=== PATIENT | male | born 1970 | race American Indian/Alaskan Native ===

== ENCOUNTER 2017-03-07 06:06 | Emergency (ER) | payer OTHER ==
[2017-03-07 06:56] LABS: Basophils % (Auto) 0.4 % (0.0-1.8); Eosinophils # (Auto) 0.1 K/mm3 (0.0-0.4); Eosinophils % (Auto) 1.2 % (0.0-4.3); Hematocrit 38.7 % (35.5-45.6); Hemoglobin 12.4 gm/dl (11.8-15.2); Lymphocytes # (Auto) 2.7 K/mm3 (1.2-5.4); Lymphocytes % (Auto) 24.6 % (13.4-35.0); Mean Corpuscular HGB Conc 32 % (32-34); Mean Corpuscular Volume 80 fl (84-94); Monocytes # (Auto) 0.9 K/mm3 (0.0-0.8); Monocytes % (Auto) 8.7 % (0.0-7.3); Platelet Count 286 K/mm3 (140-440); Red Blood Count 4.86 M/mm3 (3.65-5.03); Red Cell Distribution Width 17.7 % (13.2-15.2)
[2017-03-07 06:59] LABS: Mean Corpuscular Hemoglobin 26 pg (28-32)
[2017-03-07 07:02] LABS: Bilirubin,Urine NEG (Negative); Blood,Urine NEG (Negative); Color,Urine Yellow (Yellow); Mucus,Urine FEW /HPF; Nitrite,Urine NEG (Negative); RBC,Urine < 1.0 /HPF (0.0-6.0); WBC,Urine < 1.0 /HPF (0.0-6.0)
[2017-03-07 07:31] LABS: Calcium 9.5 mg/dL (8.4-10.2)
--- NOTE | 2017-03-07 08:03 | Cat Scan Report ---
FINAL REPORT EXAM: CT ABDOMEN PELVIS WO CON HISTORY: Right groin swelling and pain TECHNIQUE: Routine axial imaging was obtained of the abdomen and pelvis without oral or IV contrast. Sagittal and coronal reconstructions were reviewed. FINDINGS: The lung bases are clear. Pleural fluid is not seen. There is a small hiatal hernia. The liver, gallbladder, pancreas, spleen, and adrenal glands appear normal. The kidneys show no evidence of stones or hydronephrosis. There is a 3.8 cm cyst in the lower pole of left kidney. The bowel loops are normal in caliber and course. There is no evidence of free fluid or adenopathy. In the pelvis there is a large right inguinal hernia containing omental fat. The appendix is extending into the right inguinal hernia. There is no evidence of ischemia. The prostate gland and bladder appear normal. The skeletal structures appear well maintained. IMPRESSION: Large right inguinal hernia containing omental fat as well as the patient's appendix. No evidence of ischemia. No acute process in the upper abdomen. 3.8 cm cortical cyst left kidney. Small hiatal hernia.
--- NOTE | 2017-03-07 08:09 | Ultrasound Report ---
FINAL REPORT EXAM: US TESTICULAR DOPPLER COMP HISTORY: Right Scrotal Swelling TECHNIQUE: And Routine imaging was obtained of the scrotum including Doppler interrogation of the testicles. FINDINGS: Both testicles normal in size contour blood flow revealing speckle calcifications compatible with bilateral testicular microlithiasis. The right testicle measures 3.5 cm x 1.1 cm x 2.6 cm. The left testicle measures 3.9 cm x 1.7 cm x 2.6 cm. The epididymi are normal bilaterally. On the right side there is a small varicocele. Also on the right side there is an echogenic structure extending from the inguinal canal compatible the patient's known inguinal hernia containing omental fat. There is a small right-sided hydrocele. There is also a septated left-sided hydrocele, the latter measuring 3.1 cm x 1.5 cm x 1.6 cm. IMPRESSION: Large right inguinal hernia containing omental fat. Bilateral testicular microlithiasis. No evidence of testicular torsion, neoplasia or infection. Bilateral small hydroceles as described. Small right varicocele.
--- NOTE | 2017-03-07 10:41 | Emergency Department Report ---
ED Abdominal Pain HPI - General Chief Complaint: Urogenital-Male Stated Complaint: ABD PAIN Time Seen by Provider: 03/07/17 10:28 Source: patient Mode of arrival: Ambulatory Limitations: No Limitations - History of Present Illness Initial Comments: Patient is 46 years old obese -Iranian male with no significant past medical history he came today for evaluation of right inguinal swelling and right testicular swelling. Patient stated that this is been going on for 2 months he started doing some workout 2 days ago minimal lifting. Patient stated that he was able to reduce the swelling back but since yesterday he had trouble reducing it. Patient denied any nausea or vomiting. No fever. No urinary symptoms. While in the CT scan patient stated that he was able to reduce the swelling after he had the CT scan done. MD Complaint: abdominal pain -: Gradual Location: RLQ Quality: fullness Consistency: now resolved Associated Symptoms: denies other symptoms - Related Data Previous Rx's Medication Instructions Recorded Last Taken Type Naproxen [Naprosyn] 500 mg PO BID #14 tablet 03/07/17 Unknown Rx Allergies Allergy/AdvReac Type Severity Reaction Status Date / Time No Known Allergies Allergy Unverified 03/07/17 06:21 ED Review of Systems ROS: Stated complaint: ABD PAIN Other details as noted in HPI Comment: All other systems reviewed and negative Constitutional: denies: chills, fever Respiratory: denies: cough, shortness of breath Cardiovascular: denies: chest pain Gastrointestinal: abdominal pain. denies: nausea, vomiting, diarrhea, constipation, hematemesis, melena, hematochezia Musculoskeletal: denies: back pain Neurological: denies: headache, weakness, numbness, paresthesias ED Past Medical Hx - Past Medical History Hx Hypertension: Yes Additional medical history: Morbid Obesity - Surgical History Past Surgical History?: Yes Additional Surgical History: Right forearm hardware - Social History Smoking Status: Never Smoker Substance Use Type: None - Medications Home Medications: Home Medications Medication Instructions Recorded Confirmed Last Taken Type Naproxen [Naprosyn] 500 mg PO BID #14 tablet 03/07/17 Unknown Rx ED Physical Exam - General Limitations: No Limitations General appearance: alert, in no apparent distress - Head Head exam: Present: atraumatic, normocephalic - Eye Eye exam: Present: normal appearance, PERRL - ENT ENT exam: Present: normal exam. Absent: mucous membranes moist, TM's normal bilaterally - Neck Neck exam: Present: normal inspection. Absent: tenderness, meningismus, full ROM, lymphadenopathy - Respiratory Respiratory exam: Present: normal lung sounds bilaterally. Absent: respiratory distress, wheezes, rales, rhonchi, chest wall tenderness - Cardiovascular Cardiovascular Exam: Present: regular rate, normal rhythm, normal heart sounds - GI/Abdominal GI/Abdominal exam: Present: soft, normal bowel sounds, hernia (right inguinal hernia, completely reduced by the patient at the time of the exam.). Absent: distended, tenderness, guarding, rebound, rigid, diminished bowel sounds, organomegaly, mass, bruit, pulsatile mass - Extremities Exam Extremities exam: Present: normal inspection, full ROM, normal capillary refill. Absent: tenderness, pedal edema, joint swelling, calf tenderness - Back Exam Back exam: Present: normal inspection, full ROM. Absent: CVA tenderness (L) - Neurological Exam Neurological exam: Present: alert, normal gait. Absent: oriented X3, CN II-XII intact - Skin Skin exam: Present: warm, intact, normal color ED Course Vital Signs 03/07/17 06:13 Temperature 100.7 F H Pulse Rate 107 H Respiratory 18 Rate Blood Pressure 179/113 O2 Sat by Pulse 100 Oximetry - Reevaluation(s) Reevaluation #1: 03/07/17 10:42 Patient right inguinal hernia was completely reduced by the patient himself while he was in the CT scan. No evidence of strangulation or obstruction. Patient was given Dr. Kenyon to follow-up for possible elective surgery. ED Medical Decision Making - Lab Data Result diagrams: 03/07/17 06:40 03/07/17 06:40 - Radiology Data Radiology results: report reviewed Referring Physician: ED BASIA Patient Name: DERIK GR Date of : 1970 Sex: Male Report Date: 2017-03-07 Report Status: Finalized Findings [facility] [address] [place] [address] Cat Scan Report Signed Patient: DERIK GR MR#: [id number] : 1970 Acct:[id number] Age/Sex: 46 / M ADM Date: 03/07/17 Loc: ED Attending Dr: Ordering Physician: ED MD BASIA Date of Service: 03/07/17 Procedure(s): CT abdomen pelvis wo con Accession Number(s): [id number] cc: BUTCH FLOR MD FINAL REPORT EXAM: CT ABDOMEN PELVIS WO CON HISTORY: Right groin swelling and pain TECHNIQUE: Routine axial imaging was obtained of the abdomen and pelvis without oral or IV contrast. Sagittal and coronal reconstructions were reviewed. FINDINGS: The lung bases are clear. Pleural fluid is not seen. There is a small hiatal hernia. The liver, gallbladder, pancreas, spleen, and adrenal glands appear normal. The kidneys show no evidence of stones or hydronephrosis. There is a 3.8 cm cyst in the lower pole of left kidney. The bowel loops are normal in caliber and course. There is no evidence of free fluid or adenopathy. In the pelvis there is a large right inguinal hernia containing omental fat. The appendix is extending into the right inguinal hernia. There is no evidence of ischemia. The prostate gland and bladder appear normal. The skeletal structures appear well maintained. IMPRESSION: Large right inguinal hernia containing omental fat as well as the patient's appendix. No evidence of ischemia. No acute process in the upper abdomen. 3.8 cm cortical cyst left kidney. Small hiatal hernia. Transcribed By: RB Dictated By: BENJA TRAN MD Electronically Authenticated By: BENJA TRAN MD Signed Date/Time: 03/07/17358 DD/ 8 TD/TT: 03/07/17358 Referring Physician: BUTCH FLOR Patient Name: DERIK GR Date of : 1970 Sex: Male Report Date: 2017-03-07 Report Status: Finalized Findings [facility] [address] [place] [address] Ultrasound Report Signed Patient: DERIK GR MR#: [id number] : 1970 Acct:[id number] Age/Sex: 46 / M ADM Date: 03/07/17 Loc: ED Attending Dr: Ordering Physician: BUTCH FLOR MD Date of Service: 03/07/17 Procedure(s): US testicular doppler comp Accession Number(s): [id number] cc: BUTCH FLOR MD FINAL REPORT EXAM: US TESTICULAR DOPPLER COMP HISTORY: Right Scrotal Swelling TECHNIQUE: And Routine imaging was obtained of the scrotum including Doppler interrogation of the testicles. FINDINGS: Both testicles normal in size contour blood flow revealing speckle calcifications compatible with bilateral testicular microlithiasis. The right testicle measures 3.5 cm x 1.1 cm x 2.6 cm. The left testicle measures 3.9 cm x 1.7 cm x 2.6 cm. The epididymi are normal bilaterally. On the right side there is a small varicocele. Also on the right side there is an echogenic structure extending from the inguinal canal compatible the patient's known inguinal hernia containing omental fat. There is a small right-sided hydrocele. There is also a septated left-sided hydrocele, the latter measuring 3.1 cm x 1.5 cm x 1.6 cm. IMPRESSION: Large right inguinal hernia containing omental fat. Bilateral testicular microlithiasis. No evidence of testicular torsion, neoplasia or infection. Bilateral small hydroceles as described. Small right varicocele. Transcribed By: RB Dictated By: BENJA TRAN MD Electronically Authenticated By: BENJA TRAN MD Signed Date/Time: 03/07/17404 DD/ 4 TD/TT: 03/07/17404 Critical care attestation.: If time is entered above; I have spent that time in minutes in the direct care of this critically ill patient, excluding procedure time. ED Disposition Clinical Impression: Abdominal pain, Inguinal hernia of right side with obstruction and without gangrene Disposition: -01 TO HOME OR SELFCARE Is pt being admited?: No Condition: Stable Instructions: Inguinal Hernia (ED) Prescriptions: Naproxen [Naprosyn] 500 mg PO BID #14 tablet Referrals: THERESA KENOYN DO [Staff Physician] - 3-5 Days
[2017-03-07 11:02] VITALS: BP 172/110
== END 2017-03-07 11:08 | disposition home or self-care (01) ==
LOC: ED 06:06
DX: K40.30 Unilateral inguinal hernia, with obstruction, without gangrene, not specified as recurrent (principal); I10 Essential (primary) hypertension; E66.01 Morbid (severe) obesity due to excess calories
CPT/HCPCS: 36415; 74176; 80048; 81001; 85025; 93975

== ENCOUNTER 2017-04-06 06:04 | Day surgery (SDC) | payer OTHER ==
[~2017-04-06 06:04] MED LIST: LACTATED RINGERS 1,000 ML IV SCH; PEPCID IV NR; VERSED IV NR
--- NOTE | 2017-04-06 07:01 | Anesthesia Consultation ---
Anesthesia Consult and Med Hx Date of service: 04/06/17 - Airway Anesthetic Teeth Evaluation: Good ROM Head & Neck: Adequate Mental/Hyoid Distance: Adequate Mallampati Class: Class II Intubation Access Assessment: Probably Good - Pulmonary Exam CTA: Yes - Cardiac Exam Cardiac Exam: RRR - Pre-Operative Health Status ASA Pre-Surgery Classification: ASA2 Proposed Anesthetic Plan: General - Pulmonary Hx Smoking: No Hx Asthma: No Hx Respiratory Symptoms: No SOB: No COPD: No Home Oxygen Therapy: No Hx Pneumonia: No Hx Sleep Apnea: No - Cardiovascular System Hx Hypertension: Yes (10 YEARS) Hx Coronary Artery Disease: No Hx Heart Attack/AMI: No Hx Angina: No Hx Percutaneous Transluminal Coronary Angioplasty (PTCA): No Hx Cardia Arrhythmia: No Hx Pacemaker: No Hx Internal Defibrillator: No Hx Valvular Heart Disease: No Hx Heart Murmur: No Hx Peripheral Vascular Disease: No - Central Nervous System Hx Neuromuscular Disorder: No Hx Seizures: No CVA: No Hx Back Pain: No Hx Psychiatric Problems: No - Gastrointestinal Hx Ulcer: No Hx Gastroesophageal Reflux Disease: No - Endocrine Hx Renal Disease: No Hx End Stage Renal Disease: No Hx Cirrhosis: No Hx Liver Disease: No Hx Insulin Dependent Diabetes: No Hx Non-Insulin Dependent Diabetes: No Hx Thyroid Disease: No Hx Hypothyroidism: No Hx Hyperthyroidism: No - Hematic Hx Anemia: No Hx Sickle Cell Disease: No - Other Systems Hx Alcohol Use: Yes (SOCIAL) Hx Substance Use: No Hx Cancer: No Hx Obesity: Yes
--- NOTE | 2017-04-06 07:02 | Anesthesia Day of Surgery ---
Anesthesia Day of Surgery - Day of Surgery Patient H&P Reviewed: Yes Patient is NPO: Yes Beta Blockers: Yes Cardiac Clearance: No Pulmonary Clearance: No Km's Test: N/A
[2017-04-06] MEDS ORDERED: XYLOCAINE MPF 2% ONE (07:31)
[2017-04-06] MEDS ORDERED: ZEMURON IV ONE (07:31)
[2017-04-06] MEDS ORDERED: DIPRIVAN 10 MG/ML IV ONE ×2 (07:32→08:12)
[2017-04-06] MEDS ORDERED: DILAUDID ONE (07:32)
[2017-04-06] MEDS ORDERED: ANCEF/STERILE WATER 2 GM/20 ML IV NR (08:00)
[2017-04-06] MEDS ORDERED: ANCEF ONE (08:39)
[2017-04-06] MEDS ORDERED: LACTATED RINGERS 1,000 ML ONE (09:40)
[2017-04-06] MEDS ORDERED: ZOFRAN ONE (09:41)
[2017-04-06] MEDS ORDERED: MARCAINE 0.5% INFILTRATI ONE (10:06)
[2017-04-06] MEDS ORDERED: ROBINUL ONE (11:27)
[2017-04-06] MEDS ORDERED: NEOSTIGMINE ONE (11:28)
[2017-04-06] MEDS ORDERED: NEO SYNEPHRINE/NS Syringe(OR USE) IV ONE (11:30)
[2017-04-06] MEDS ORDERED: TORADOL ONE (11:40)
--- NOTE | 2017-04-06 12:43 | Short Stay Summary ---
Short Stay Documentation Date of service: 04/06/17 Narrative H&P: 46 yo M with symptomatic incarcerated right inguinal hernia presents for elective repair. He has - History Principal diagnosis: incarcerated right inguinal hernia H&P: obtained from office - Allergies and Medications Current Medications: Allergies No Known Allergies Allergy (Verified 03/26/17 10:39) Home Medications Medication Instructions Recorded Confirmed Last Taken Type Atenolol [Tenormin] 100 mg PO DAILY 03/23/17 04/06/17 04/05/17 10:00 History amLODIPine [Norvasc] 10 mg PO DAILY 03/23/17 04/06/17 04/06/17 07:00 History Active Medications Cefazolin Sodium (Ancef/Sterile Water 2 Gm/20 Ml) 2 gm IV PREOP NR Stop: 04/06/17 23:59 Famotidine (Pepcid) 20 mg IV PREOP NR Stop: 04/06/17 23:59 Last Admin: 04/06/17 06:55 Dose: 20 mg Lactated Ringer's (Lactated Ringers) 1,000 mls @ 75 mls/hr IV DIRECT HORTENCIA Last Admin: 04/06/17 06:45 Dose: 75 mls/hr Midazolam HCl (Versed) 2 mg IV PREOP NR Stop: 04/06/17 23:59 Last Admin: 04/06/17 07:50 Dose: 2 mg - Brief post op/procedure progress note Date of procedure: 04/06/17 Pre-op diagnosis: right incarcerated inguinal hernia Post-op diagnosis: same Procedure: Robotic assisted laparoscopic right inguinal hernia repair with mesh Anesthesia: GETA, local Findings: large right direct defect with incarcerated omentum Surgeon: THERESA KENYON Institutional Asset Manager: AGAPITO OROZCO Estimated blood loss: minimal Pathology: none Condition: stable - Hospital course Hospital course: Patient was recovered in the PACU and discharged to home in stable condition. - Disposition Condition at discharge: Good Disposition: DC-01 TO HOME OR SELFCARE Short Stay Discharge Plan Activity: other (NO HEAVY LIFTING GREATER THAN 15 LBS FOR THE NEXT 2 WEEKS. ) Diet: low salt Wound: open to air, other (May shower tomorrow, no baths/hottubs/pools until incisions healed. Pat incisions dry, do not scrub) Additional Instructions: You may experience swelling or bruising in your groin or scrotum. This is expected. Call surgeon's office if you have fever >100.4, intractable abdominal pain, nausea, or vomiting. Take Over the counter tylenol or ibuprofen for pain as directed on the bottle. Follow up with: EKTA RON MD [Primary Care Provider] - 7 Days THERESA KENYON DO [Staff Physician] - 14 Days
[2017-04-06 14:16] VITALS: BP 152/99
--- NOTE | 2017-04-06 18:34 | Operative Report ---
Operative Report Operative Report: Operative Report: Date of operation: 04/06/2017 Preoperative diagnosis: Incarcerated right inguinal hernia Postoperative diagnosis: Same as above Procedure performed: Robotic assisted, laparoscopic Lysis of adhesions and right inguinal hernia repair with mesh Surgeon: Abril Moran DO Legal Contracts Specialist: Nancy Marie MD Anesthesia: Gen. endotracheal anesthesia Findings: Large direct and small indirect hernia defects Estimated blood loss: Less than 10 mL Complications: None Disposition: Stable to PACU HPI an indication: The patient is a 46-year-old obese -[place]ian male who presented to the surgery clinic for evaluation of a right inguinal hernia. The patient had been seen in the emergency room for increased swelling in the right groin and a CT scan showed a right inguinal hernia containing a large amount of fat and a portion of the patient's appendix. The patient states that this is limiting his lifestyle and preventing him from going to work. All risks and benefits of a laparoscopic, possible open hernia repair were discussed with the patient. All questions were answered and consent was signed. The patient was scheduled for a robotic assisted, laparoscopic right internal hernia repair with mesh. Procedure in detail: The patient was identified in the preoperative area, taken back to the operating room and placed on the operating table in supine position. After anesthesia was induced a Harry catheter was sterilely placed by the circulating nurse. The abdomen was then prepped and draped in usual sterile fashion and a timeout was performed. Local anesthetic, 0.25% Marcaine was injected into all skin incision sites. A supraumbilical horizontal incision was made using a 15 blade. Dissection was carried down through the skin and subcutaneous tissue using Bovie electrocautery until the fascia was encountered. This was tented upwards between 2 Hanane clamps and opened with the Bovie electrocautery. The peritoneum was visualized and tented upwards between 2 Hanane clamps and incised using Metzenbaum scissors. A 12 mm trocar was then directly inserted into the intra-abdominal space and the abdomen insufflated to 15 mmHg. The camera was then inserted and the abdomen inspected. There was no underlying injury to any intra-abdominal contents. The right groin was visualized and there was a large amount of fat incarcerated in the hernia. 2 additional 8 mm robotic trocars were then placed under direct visualization, 1 in the right lateral upper quadrant and one in the left lateral upper quadrant. Patient was then placed into Trendelenburg position and the robot docked. Using the robotic graspers, the omentum in the hernia was gently reduced. There was omentum incarcerated in the hernia and lysis of adhesions was carefully performed using monopolar Endo Fannie. Once all of the omentum was reduced, it was carefully inspected for hemostasis. This lysis of adhesions took approximately 30 minutes. The peritoneum was incised laterally using fannie several centimeters anterior to the hernia. The incision in the peritoneum was carried medially towards the medial umbilical ligament. The preperitoneal space was then developed bluntly with hemostasis carefully achieved along the way. The epigastric vessels were identified. First, I identified the pubic tubercle medially by gently clearing off the overlying tissue using blunt dissection. I then turned my attention to creating the lateral space. This was also achieved bluntly, with hemostasis achieved along the way. The direct hernia defect measured approximately 4 cm. A very large and redundant hernia sac was identified and meticulously reduced. There was also a small indirect component to the hernia. The cord structures were gently swept away from the hernia sac and with great care taken to avoid injury to these structures. The vas deferens was clearly identified and protected. Once the peritoneum was adequately reduced, a large right-sided Bard 3-D Max mesh was placed into the abdomen. This was inserted into the preperitoneal space with coverage of all hernia spaces, and laid flat over the cord structures It was fixed to the pubic tubercle medially, to the anterior abdominal wall, and lateral abdominal wall using 2-0 Vicryl interrupted sutures. The peritoneum was then reapproximated over the mesh using 3-0 V lock sutures in a running fashion. The redundant hernia sac was incorporated into this repair. The needles were removed under direct visualization. The robot was then undocked and pneumoperitoneum released. The ports were removed. The fascia of the umbilical port was closed using figure interrupted, 0 Vicryl stitches. All skin incisions were closed with 4-0 Monocryl subcuticular stitches and skin glue. At the end of the case, all sponge, instrument, sharp counts were correct 2. The patient's scrotum was palpated, there were 2 testicles present. Residual scrotal air was decompressed. The Harry catheter was removed. The patient was awoken from anesthesia, extubated, and he was taken to PACU in stable condition.
== END 2017-04-06 14:07 | disposition home or self-care (01) ==
LOC: OR 06:04
PROVIDERS: ATTEND Surgery
DX: K40.30 Unilateral inguinal hernia, with obstruction, without gangrene, not specified as recurrent (principal); M10.9 Gout, unspecified; K21.9 Gastro-esophageal reflux disease without esophagitis; I10 Essential (primary) hypertension; E66.01 Morbid (severe) obesity due to excess calories; Z68.42 Body mass index [BMI] 45.0-49.9, adult
CPT/HCPCS: 49650; C1781; J0690; J1170; J1885; J2250; J2370; J2405; J2704; J2710; J7120; S2900